=== PATIENT | female | born 1950 | race Caucasian/White ===

== ENCOUNTER 2023-10-01 00:33 | Inpatient (IN) ==
[2023-10-01] MEDS ORDERED: Ondansetron 4 mg VIAL 2 MG/ML 2 ml VIAL IV ONE (08:05)
[2023-10-01] MEDS ORDERED: Morphine 4 MG/ML VIAL (1 ml) IV ONE (08:05)
[2023-10-01 09:00] LABS: ABS Eosinophils 0.1 10^3/uL (0.0-0.5); ABS Lymphocytes 1.4 10^3/uL (1.0-4.8); ABS Monocytes 0.7 10^3/uL (0.0-0.9); ABS Neutrophils 6.1 10^3/uL (1.5-7.6); ABS Nucleated RBC 0.01 10^3/ul; Eosinophil % 1.1 %; Hematocrit 38.1 % (35-45); Hemoglobin 12.8 g/dL (11.5-14.3); Mean Corpuscular Hemoglobin 30.5 pg (27-33); Mean Corpuscular Hgb Conc 33.6 g/dL (31-36); Mean Corpuscular Volume 90.8 fL (80-97); Mean Platelet Volume 8.4 fL (7.5-11.2); Nucleated Red Blood Cells % 0.1 %/100WBC (0.0-0.8); Platelet Count 261 10^3/uL (150-450); Red Blood Count 4.19 10^6/uL (3.63-4.92); Red Cell Distribution Width 13.4 % (12-17); White Blood Count 8.4 10^3/uL (3.8-11.8)
[2023-10-01 09:21] LABS: INR 1.21 (0.83-1.13)
[2023-10-01 09:32] LABS: Albumin 3.7 g/dL (3.2-5.2); Albumin/Globulin Ratio 1.3 (1-3); Calcium 8.8 mg/dL (8.6-10.3); Creatinine, Serum 0.91 mg/dL (0.51-0.95); Globulin 2.9 g/dL (2-4); Potassium 3.8 mmol/L (3.5-5.0); Total Bilirubin 0.5 mg/dL (0.2-1.0); Total Protein 6.6 g/dL (6.4-8.9); eGFR CKD-EPI 66.2 (>60)
[2023-10-01] MEDS ORDERED: Enoxaparin 40 MG/0.4 ML SYR SUBCUT ONE (11:54)
[2023-10-01] MEDS ORDERED: Morphine 2 MG/ML SYRINGE IV PRN (11:55)
[2023-10-01] MEDS ORDERED: Ondansetron 4 mg VIAL 2 MG/ML 2 ml VIAL IV PRN (11:58)
[2023-10-01] MEDS: Morphine 2 MG/ML SYRINGE IV PRN (12:20)
[2023-10-01] MEDS ORDERED: Dextrose 50% Syringe 50 ml 25 GM/50 ML SYRINGE IV PUSH PRN (15:57)
[2023-10-02 06:42] LABS: ABS Eosinophils 0.2 10^3/uL (0.0-0.5); ABS Lymphocytes 1.2 10^3/uL (1.0-4.8); ABS Monocytes 0.8 10^3/uL (0.0-0.9); ABS Neutrophils 3.9 10^3/uL (1.5-7.6); ABS Nucleated RBC 0.01 10^3/ul; Eosinophil % 3.2 %; Hematocrit 39.1 % (35-45); Hemoglobin 12.9 g/dL (11.5-14.3); Lymphocyte % 19.9 %; Mean Corpuscular Hemoglobin 30.8 pg (27-33); Mean Corpuscular Volume 93.3 fL (80-97); Mean Platelet Volume 8.6 fL (7.5-11.2); Nucleated Red Blood Cells % 0.1 %/100WBC (0.0-0.8); Platelet Count 237 10^3/uL (150-450); Red Blood Count 4.19 10^6/uL (3.63-4.92); Red Cell Distribution Width 13.9 % (12-17); White Blood Count 6.2 10^3/uL (3.8-11.8)
[2023-10-02 07:17] LABS: Calcium 8.6 mg/dL (8.6-10.3); Creatinine, Serum 0.85 mg/dL (0.51-0.95); Potassium 4.5 mmol/L (3.5-5.0); eGFR CKD-EPI 71.8 (>60)
[2023-10-02] MEDS: Morphine 2 MG/ML SYRINGE IV PRN (15:10)
[2023-10-02] MEDS ORDERED: Enoxaparin 40 MG/0.4 ML SYR SUBCUT ONE (18:27)
[2023-10-03] MEDS: Morphine 2 MG/ML SYRINGE IV PRN (06:17)
[2023-10-03 06:53] LABS: ABS Basophils 0.1 10^3/uL (0.0-0.1); ABS Eosinophils 0.3 10^3/uL (0.0-0.5); ABS Lymphocytes 1.1 10^3/uL (1.0-4.8); ABS Monocytes 0.8 10^3/uL (0.0-0.9); ABS Neutrophils 4.6 10^3/uL (1.5-7.6); ABS Nucleated RBC 0.01 10^3/ul; Eosinophil % 4.2 %; Hematocrit 35.4 % (35-45); Hemoglobin 11.9 g/dL (11.5-14.3); Lymphocyte % 16.1 %; Mean Corpuscular Hemoglobin 30.5 pg (27-33); Mean Corpuscular Hgb Conc 33.6 g/dL (31-36); Mean Corpuscular Volume 90.8 fL (80-97); Mean Platelet Volume 8.8 fL (7.5-11.2); Nucleated Red Blood Cells % 0.1 %/100WBC (0.0-0.8); Platelet Count 228 10^3/uL (150-450); Red Cell Distribution Width 13.3 % (12-17); White Blood Count 6.7 10^3/uL (3.8-11.8)
[2023-10-03 07:56] LABS: Calcium 8.2 mg/dL (8.6-10.3); Creatinine, Serum 0.83 mg/dL (0.51-0.95); Magnesium 1.9 mg/dL (1.9-2.7); Potassium 3.9 mmol/L (3.5-5.0); eGFR CKD-EPI 73.9 (>60)
[2023-10-03] MEDS ORDERED: Enoxaparin 40 MG/0.4 ML SYR SUBCUT ONE (17:00)
[2023-10-03] MEDS ORDERED: Scopolamine 1 mg/72hr PATCH TRANSDERM ONE (19:51)
[2023-10-03] MEDS ORDERED: Buffered Lidocaine 1% SYRIN 1 ml INTRADERM ONE (19:51)
[2023-10-03] MEDS: Lactated Ringers 1000 ml BAG 1,000 ML IV SCH ×2 (20:58→21:03)
[2023-10-04 05:52] LABS: ABS Basophils 0.1 10^3/uL (0.0-0.1); ABS Eosinophils 0.3 10^3/uL (0.0-0.5); ABS Monocytes 0.7 10^3/uL (0.0-0.9); Eosinophil % 5.4 %; Hematocrit 35.6 % (35-45); Hemoglobin 12.3 g/dL (11.5-14.3); Lymphocyte % 16.6 %; Mean Corpuscular Hemoglobin 31.2 pg (27-33); Mean Corpuscular Hgb Conc 34.5 g/dL (31-36); Mean Corpuscular Volume 90.5 fL (80-97); Mean Platelet Volume 8.5 fL (7.5-11.2); Platelet Count 228 10^3/uL (150-450); Red Blood Count 3.93 10^6/uL (3.63-4.92); Red Cell Distribution Width 13.4 % (12-17); White Blood Count 6.1 10^3/uL (3.8-11.8)
[2023-10-04 06:11] LABS: Calcium 8.1 mg/dL (8.6-10.3); Creatinine, Serum 0.65 mg/dL (0.51-0.95); Potassium 3.8 mmol/L (3.5-5.0); eGFR CKD-EPI 92.3 (>60)
[2023-10-04] MEDS: Lactated Ringers 1000 ml BAG 1,000 ML IV SCH ×2 (08:38→20:35)
[2023-10-04] MEDS ORDERED: Succinylcholine 200 mg VIAL 20 mg/ml 10 ml VIAL (200 mg) ONE (10:05)
[2023-10-04] MEDS ORDERED: Rocuronium 50 mg VIAL 10 mg/ml 5 ml VIAL (50 mg) ONE ×2 (10:05→12:43)
[2023-10-04] MEDS ORDERED: Lidocaine 2% PF 5 ML VIAL ONE (10:05)
[2023-10-04] MEDS ORDERED: Propofol 10 MG/ML 20 ML BTL ONE (10:05)
[2023-10-04] MEDS ORDERED: Midazolam 2 mg/2 ml VIAL 1 mg/ml 2 ml VIAL (2 mg) ONE (10:06)
[2023-10-04] MEDS ORDERED: fentaNYL 250 mcg/5 ml 50 MCG/ML 5 ml VIAL (250 MCG) ONE (10:07)
[2023-10-04] MEDS ORDERED: ceFAZolin *3* GM in NS PREMIX 3 GM/100 ML BAG IV ONE (11:36)
[2023-10-04] MEDS ORDERED: Naloxone 0.4 mg VIAL 0.4 mg/ml 1 ml VIAL IV PRN (13:43)
[2023-10-04] MEDS ORDERED: Metoclopramide 5 MG/ML VIAL (10 mg) IV PRN (13:43)
[2023-10-04] MEDS ORDERED: Bupivacaine 0.5% SDV PF 30ML VIAL ONE (14:00)
[2023-10-04] MEDS ORDERED: Labetalol IV 5 MG/ML 20 ml VIAL ONE (15:01)
[2023-10-04] MEDS ORDERED: fentaNYL 100 mcg/2 ml 50 MCG/ML VIAL ONE (15:01)
[2023-10-04] MEDS ORDERED: Morphine 4 MG/ML VIAL (1 ml) ONE (15:39)
[2023-10-04] MEDS: Morphine 2 MG/ML SYRINGE IV PRN (17:35)
[2023-10-04] MEDS: ceFAZolin 1 GM ADVAN 1 GM in NS 0.9% 50 ML 50 ML IVPB SCH (20:35)
[2023-10-05] MEDS: ceFAZolin 1 GM ADVAN 1 GM in NS 0.9% 50 ML 50 ML IVPB SCH ×2 (03:56→12:17)
[2023-10-05] MEDS: Enoxaparin 40 MG/0.4 ML SYR SUBCUT SCH (08:02)
[2023-10-05 08:44] LABS: ABS Eosinophils 0.2 10^3/uL (0.0-0.5); ABS Lymphocytes 1.1 10^3/uL (1.0-4.8); ABS Monocytes 1.1 10^3/uL (0.0-0.9); ABS Neutrophils 6.7 10^3/uL (1.5-7.6); ABS Nucleated RBC 0.01 10^3/ul; Eosinophil % 2.2 %; Hematocrit 36.1 % (35-45); Lymphocyte % 11.8 %; Mean Corpuscular Hemoglobin 30.5 pg (27-33); Mean Corpuscular Hgb Conc 33.3 g/dL (31-36); Mean Corpuscular Volume 91.6 fL (80-97); Mean Platelet Volume 8.5 fL (7.5-11.2); Nucleated Red Blood Cells % 0.1 %/100WBC (0.0-0.8); Platelet Count 273 10^3/uL (150-450); Red Blood Count 3.94 10^6/uL (3.63-4.92); Red Cell Distribution Width 13.2 % (12-17); White Blood Count 9.2 10^3/uL (3.8-11.8)
[2023-10-05 08:56] LABS: Calcium 8.6 mg/dL (8.6-10.3); Creatinine, Serum 0.8 mg/dL (0.51-0.95); Magnesium 1.9 mg/dL (1.9-2.7); Phosphorus 3.3 mg/dL (2.5-5.0); Potassium 4.1 mmol/L (3.5-5.0); eGFR CKD-EPI 77.3 (>60)
[2023-10-06] MEDS ORDERED: Polyethylene Glycol 3350 17 GM PACKET PO PRN (04:08)
[2023-10-06] MEDS ORDERED: Magnesium Hydroxide LIQ 30 ML UDC PO PRN (04:08)
[2023-10-06] MEDS ORDERED: Senna TAB 8.6 mg TAB PO PRN (04:08)
[2023-10-06 07:08] LABS: Hematocrit 31.5 % (35-45); Hemoglobin 10.7 g/dL (11.5-14.3)
[2023-10-06] MEDS: Enoxaparin 40 MG/0.4 ML SYR SUBCUT SCH (08:53)
[2023-10-06] MEDS ORDERED: Metoprolol Tartrate 5 mg VIAL 5 ml VIAL (1 mg/ml) IV PRN (11:32)
[2023-10-06] MEDS ORDERED: Enoxaparin 80 MG/0.8 ML SYR SUBCUT ONE (11:35)
[2023-10-06 11:55] LABS: Creatinine, Serum 0.75 mg/dL (0.51-0.95); Phosphorus 3.1 mg/dL (2.5-5.0); Potassium 3.9 mmol/L (3.5-5.0); eGFR CKD-EPI 83.5 (>60)
[2023-10-06] MEDS: Polyethylene Glycol 3350 17 GM PACKET PO SCH (12:09)
[2023-10-06 12:23] LABS: TSH Ultra Thyroid Stim Horm 2.88 mcIU/mL (0.34-5.60)
[2023-10-06 12:25] LABS: Free T4 1.22 ng/dL (0.61-1.12)
[2023-10-06] MEDS ORDERED: Sulfur Hexaflouride MICROSPHR 25 MG VIAL ONE (15:31)
[2023-10-06] MEDS ORDERED: Iohexol 350 (CONTRAST) 500 ML MDV IV ONE (19:22)
[2023-10-07 06:18] LABS: Hemoglobin 10.8 g/dL (11.5-14.3); Mean Corpuscular Hemoglobin 30.5 pg (27-33); Mean Corpuscular Hgb Conc 33.7 g/dL (31-36); Mean Corpuscular Volume 90.6 fL (80-97); Mean Platelet Volume 9.1 fL (7.5-11.2); Platelet Count 267 10^3/uL (150-450); Red Blood Count 3.54 10^6/uL (3.63-4.92); Red Cell Distribution Width 13.3 % (12-17); White Blood Count 6.5 10^3/uL (3.8-11.8)
[2023-10-07 06:36] LABS: Calcium 8.4 mg/dL (8.6-10.3); Creatinine, Serum 0.78 mg/dL (0.51-0.95); Phosphorus 2.8 mg/dL (2.5-5.0); Potassium 3.7 mmol/L (3.5-5.0); eGFR CKD-EPI 79.7 (>60)
[2023-10-07 07:13] LABS: Free T4 1.29 ng/dL (0.61-1.12)
[2023-10-07] MEDS: Polyethylene Glycol 3350 17 GM PACKET PO SCH (09:06)
[2023-10-08 06:41] LABS: Hematocrit 33.6 % (35-45); Hemoglobin 11.3 g/dL (11.5-14.3)
[2023-10-08] MEDS ORDERED: Regadenoson 0.4 MG/5 ML SYRINGE ONE (08:07)
[2023-10-08] MEDS ORDERED: Aminophylline 25 MG/ML VIAL ONE (08:07)
[2023-10-08] MEDS: Polyethylene Glycol 3350 17 GM PACKET PO SCH (10:21)
[2023-10-08] MEDS: ceFAZolin 1 GM ADVAN 1 GM in NS 0.9% 50 ML 50 ML IVPB SCH ×2 (15:23→22:25)
[2023-10-09] MEDS: ceFAZolin 1 GM ADVAN 1 GM in NS 0.9% 50 ML 50 ML IVPB SCH ×3 (05:36→22:53)
[2023-10-09 06:57] LABS: Hematocrit 35.3 % (35-45); Hemoglobin 11.8 g/dL (11.5-14.3)
[2023-10-09] MEDS ORDERED: Iohexol 350 (CONTRAST) 100 ML PAK IV ONE ×2 (08:41→09:24)
[2023-10-09] MEDS ORDERED: Lidocaine 1% MPF 5 ML VIAL ONE (08:41)
[2023-10-09] MEDS ORDERED: Heparin 2 UNITS/ML 1000 mls 2,000 ML IV ONE (08:41)
[2023-10-09] MEDS ORDERED: Midazolam 10 mg/10 ml VIAL 1 mg/ml 10 ml VIAL (10 mg) IV SLOW PU ONE (08:45)
[2023-10-09] MEDS ORDERED: fentaNYL 100 mcg/2 ml 50 MCG/ML VIAL IV SLOW PU ONE (08:45)
[2023-10-09] MEDS ORDERED: Heparin 1,000 UNIT/ML 10 ml (10,000 UNITS) CATHLAB/DIALYSIS ONE (08:57)
[2023-10-09] MEDS ORDERED: fentaNYL 100 mcg/2 ml 50 MCG/ML VIAL ONE (08:57)
[2023-10-09] MEDS ORDERED: VERAPAMIL 2.5 MG/ML 2 ML VIAL ** 5 mg/2 ml ONE (08:57)
[2023-10-09] MEDS ORDERED: nitroGLYCERIN DRIP 25,000 MCG/250 ML BTL ONE (08:57)
[2023-10-09] MEDS ORDERED: Midazolam 5 mg/5 ml VIAL 1 mg/ml 5 ml VIAL (5 mg) ONE (08:57)
[2023-10-09] MEDS ORDERED: NS 0.9% 1000 ml BAG 1,000 ML IV SCH (09:45)
[2023-10-09 10:59] LABS: ABS Basophils 0.1 10^3/uL (0.0-0.1); ABS Eosinophils 0.3 10^3/uL (0.0-0.5); ABS Lymphocytes 0.8 10^3/uL (1.0-4.8); ABS Monocytes 0.6 10^3/uL (0.0-0.9); ABS Neutrophils 5.9 10^3/uL (1.5-7.6); ABS Nucleated RBC 0.01 10^3/ul; Eosinophil % 4.1 %; Hematocrit 32.7 % (35-45); Hemoglobin 10.9 g/dL (11.5-14.3); Lymphocyte % 10.9 %; Mean Corpuscular Hemoglobin 30.3 pg (27-33); Mean Corpuscular Hgb Conc 33.4 g/dL (31-36); Mean Corpuscular Volume 90.7 fL (80-97); Mean Platelet Volume 8.3 fL (7.5-11.2); Nucleated Red Blood Cells % 0.2 %/100WBC (0.0-0.8); Platelet Count 347 10^3/uL (150-450); Red Blood Count 3.61 10^6/uL (3.63-4.92); Red Cell Distribution Width 13.3 % (12-17); White Blood Count 7.7 10^3/uL (3.8-11.8)
[2023-10-09] MEDS: Polyethylene Glycol 3350 17 GM PACKET PO SCH (13:21)
[2023-10-09] MEDS ORDERED: Metoprolol Tartrate 5 mg VIAL 5 ml VIAL (1 mg/ml) IV ONE (19:07)
[2023-10-10] MEDS: ceFAZolin 1 GM ADVAN 1 GM in NS 0.9% 50 ML 50 ML IVPB SCH ×3 (05:44→21:43)
[2023-10-10 07:54] LABS: ABS Basophils 0.1 10^3/uL (0.0-0.1); ABS Eosinophils 0.5 10^3/uL (0.0-0.5); ABS Lymphocytes 1.3 10^3/uL (1.0-4.8); ABS Monocytes 0.7 10^3/uL (0.0-0.9); ABS Neutrophils 4.7 10^3/uL (1.5-7.6); ABS Nucleated RBC 0.01 10^3/ul; Eosinophil % 6.3 %; Hematocrit 38.8 % (35-45); Hemoglobin 12.4 g/dL (11.5-14.3); Lymphocyte % 17.9 %; Mean Corpuscular Hemoglobin 30.7 pg (27-33); Mean Corpuscular Hgb Conc 31.9 g/dL (31-36); Mean Platelet Volume 8.7 fL (7.5-11.2); Nucleated Red Blood Cells % 0.1 %/100WBC (0.0-0.8); Platelet Count 326 10^3/uL (150-450); Red Blood Count 4.04 10^6/uL (3.63-4.92); Red Cell Distribution Width 14.3 % (12-17); White Blood Count 7.2 10^3/uL (3.8-11.8)
[2023-10-10] MEDS ORDERED: Potassium Chloride LIQUID 20 MEQ/15 ML LIQUID PO ONE (09:47)
[2023-10-10] MEDS: Polyethylene Glycol 3350 17 GM PACKET PO SCH (11:08)
[2023-10-11] MEDS: ceFAZolin 1 GM ADVAN 1 GM in NS 0.9% 50 ML 50 ML IVPB SCH ×3 (06:37→22:17)
[2023-10-11 06:47] LABS: Calcium 8.3 mg/dL (8.6-10.3); Creatinine, Serum 0.65 mg/dL (0.51-0.95); Potassium 4.1 mmol/L (3.5-5.0); eGFR CKD-EPI 92.3 (>60)
[2023-10-11] MEDS: Polyethylene Glycol 3350 17 GM PACKET PO SCH (09:13)
[2023-10-12] MEDS: ceFAZolin 1 GM ADVAN 1 GM in NS 0.9% 50 ML 50 ML IVPB SCH ×3 (06:45→22:02)
[2023-10-12 08:02] LABS: Albumin 3.1 g/dL (3.2-5.2); Creatinine, Serum 0.67 mg/dL (0.51-0.95); Globulin 3.1 g/dL (2-4); Magnesium 2.1 mg/dL (1.9-2.7); Potassium 3.9 mmol/L (3.5-5.0); Total Bilirubin 0.4 mg/dL (0.2-1.0); Total Protein 6.2 g/dL (6.4-8.9); eGFR CKD-EPI 91.7 (>60)
[2023-10-12] MEDS: Polyethylene Glycol 3350 17 GM PACKET PO SCH (10:49)
[2023-10-13] MEDS: ceFAZolin 1 GM ADVAN 1 GM in NS 0.9% 50 ML 50 ML IVPB SCH ×3 (05:36→22:32)
[2023-10-13] MEDS: Polyethylene Glycol 3350 17 GM PACKET PO SCH (12:18)
[2023-10-14] MEDS: ceFAZolin 1 GM ADVAN 1 GM in NS 0.9% 50 ML 50 ML IVPB SCH (05:39)
[2023-10-14 06:19] VITALS: BP 143/61
[2023-10-14] MEDS: Polyethylene Glycol 3350 17 GM PACKET PO SCH (09:39)
== END 2023-10-14 10:40 | DRG 492 ==
LOC: ED 00:33 → EDHOLD 00:33 → SSU 08:53 → EDHOLD 09:03 → SSU 09:41 → SUATTDRO 10-02 09:00
PROVIDERS: ADMIT Student in an Organized Health Care Education/Training Program; ATTEND Internal Medicine

== ENCOUNTER 2024-04-06 09:00 | Inpatient (IN) ==
[2024-04-06 09:52] LABS: ABS Basophils 0.1 10^3/uL (0.0-0.1); ABS Eosinophils 0.3 10^3/uL (0.0-0.5); ABS Lymphocytes 1.3 10^3/uL (1.0-4.8); ABS Monocytes 0.9 10^3/uL (0.0-0.9); ABS Neutrophils 6.9 10^3/uL (1.5-7.6); ABS Nucleated RBC 0.01 10^3/ul; Eosinophil % 2.9 %; Hematocrit 23.2 % (35-45); Hemoglobin 7.8 g/dL (11.5-14.3); Lymphocyte % 13.8 %; Mean Corpuscular Hemoglobin 29.9 pg (27-33); Mean Corpuscular Hgb Conc 33.5 g/dL (31-36); Mean Corpuscular Volume 89.2 fL (80-97); Mean Platelet Volume 7.7 fL (7.5-11.2); Nucleated Red Blood Cells % 0.1 %/100WBC (0.0-0.8); Platelet Count 415 10^3/uL (150-450); Red Cell Distribution Width 16.5 % (12-17); White Blood Count 9.4 10^3/uL (3.8-11.8)
[2024-04-06 10:09] LABS: INR 1.24 (0.83-1.13)
[2024-04-06 10:45] LABS: ALT 10 U/L (7-52); AST 13 U/L (13-39); Albumin 3.3 g/dL (3.2-5.2); Albumin/Globulin Ratio 1.4 (1-3); Alkaline Phosphatase 48 U/L (35-149); Anion Gap 9 mmol/L (2-16); Blood Urea Nitrogen 26 mg/dL (6-24); CO2 Carbon Dioxide 25 mmol/L (22-32); Calcium 8.2 mg/dL (8.6-10.3); Chloride 105 mmol/L (101-111); Creatinine, Serum 0.91 mg/dL (0.51-0.95); Globulin 2.3 g/dL (2-4); Glucose 48 mg/dL (70-100); Potassium 4.2 mmol/L (3.5-5.0); Sodium 139 mmol/L (135-145); Total Bilirubin 0.3 mg/dL (0.2-1.0); Total Protein 5.6 g/dL (6.4-8.9); eGFR CKD-EPI 66.2 (>60)
[2024-04-06 10:53] LABS: TSH Ultra Thyroid Stim Horm 5.94 mcIU/mL (0.34-5.60)
[2024-04-06] MEDS: Dextrose 50% Syringe 50 ml 25 GM/50 ML SYRINGE IV PUSH ONE (10:55)
[2024-04-06 10:57] LABS: Free T4 1.09 ng/dL (0.61-1.12)
[2024-04-06] MEDS: Morphine 4 MG/ML VIAL (1 ml) IV ONE (16:23)
[2024-04-06] MEDS ORDERED: Dextrose 50% Syringe 50 ml 25 GM/50 ML SYRINGE IV PUSH PRN (17:41)
[2024-04-07 03:44] LABS: % Iron Saturation 4 % (15-55); .Transferrin 329 mg/dL (203-362); Iron < 20 ug/dL (50-212); Total Iron Binding Capacity 461 mcg/dL (250-450); Unsaturated Iron Binding 441 ug/dL
[2024-04-07 04:04] LABS: Ferritin 13.3 ng/mL (11-307)
[2024-04-07 05:39] LABS: ABS Basophils 0.1 10^3/uL (0.0-0.1); ABS Eosinophils 0.3 10^3/uL (0.0-0.5); ABS Lymphocytes 1.3 10^3/uL (1.0-4.8); ABS Monocytes 0.8 10^3/uL (0.0-0.9); ABS Neutrophils 3.8 10^3/uL (1.5-7.6); Eosinophil % 5.2 %; Hematocrit 19.7 % (35-45); Hemoglobin 6.6 g/dL (11.5-14.3); Lymphocyte % 21.3 %; Mean Corpuscular Hemoglobin 30.1 pg (27-33); Mean Corpuscular Hgb Conc 33.7 g/dL (31-36); Mean Corpuscular Volume 89.2 fL (80-97); Mean Platelet Volume 7.8 fL (7.5-11.2); Platelet Count 334 10^3/uL (150-450); Red Blood Count 2.21 10^6/uL (3.63-4.92); Red Cell Distribution Width 16.2 % (12-17); White Blood Count 6.3 10^3/uL (3.8-11.8)
[2024-04-07 06:05] LABS: Albumin 2.9 g/dL (3.2-5.2); Albumin/Globulin Ratio 1.5 (1-3); Calcium 7.8 mg/dL (8.6-10.3); Creatinine, Serum 0.81 mg/dL (0.51-0.95); Potassium 4.4 mmol/L (3.5-5.0); Total Bilirubin 0.3 mg/dL (0.2-1.0); Total Protein 4.9 g/dL (6.4-8.9); eGFR CKD-EPI 76.1 (>60)
[2024-04-07] MEDS: Lactated Ringers 1000 ml BAG 500 ML IV ONE (06:22)
[2024-04-07] MEDS ORDERED: Polyethylene Glycol 3350 17 GM PACKET PO PRN (10:46)
[2024-04-07] MEDS ORDERED: Senna TAB 8.6 mg TAB PO PRN (10:46)
[2024-04-07 13:14] LABS: Hematocrit 27.1 % (35-45)
[2024-04-08 05:05] LABS: ABS Basophils 0.1 10^3/uL (0.0-0.1); ABS Eosinophils 0.5 10^3/uL (0.0-0.5); ABS Lymphocytes 1.3 10^3/uL (1.0-4.8); ABS Monocytes 0.7 10^3/uL (0.0-0.9); ABS Neutrophils 3.6 10^3/uL (1.5-7.6); ABS Nucleated RBC 0.01 10^3/ul; Eosinophil % 8.4 %; Hematocrit 22.3 % (35-45); Hemoglobin 7.6 g/dL (11.5-14.3); Lymphocyte % 21.4 %; Mean Corpuscular Hemoglobin 30.7 pg (27-33); Mean Corpuscular Hgb Conc 34.2 g/dL (31-36); Mean Corpuscular Volume 89.7 fL (80-97); Mean Platelet Volume 7.5 fL (7.5-11.2); Nucleated Red Blood Cells % 0.1 %/100WBC (0.0-0.8); Platelet Count 331 10^3/uL (150-450); Red Blood Count 2.49 10^6/uL (3.63-4.92); Red Cell Distribution Width 16.2 % (12-17); White Blood Count 6.2 10^3/uL (3.8-11.8)
[2024-04-08 05:19] LABS: Calcium 8.2 mg/dL (8.6-10.3); Creatinine, Serum 0.76 mg/dL (0.51-0.95); Potassium 4.2 mmol/L (3.5-5.0); eGFR CKD-EPI 82.2 (>60)
[2024-04-08 12:08] LABS: Hematocrit 25.6 % (35-45); Hemoglobin 8.2 g/dL (11.5-14.3)
[2024-04-09 06:51] LABS: ABS Basophils 0.1 10^3/uL (0.0-0.1); ABS Eosinophils 0.4 10^3/uL (0.0-0.5); ABS Lymphocytes 1.1 10^3/uL (1.0-4.8); ABS Monocytes 0.7 10^3/uL (0.0-0.9); ABS Neutrophils 6.2 10^3/uL (1.5-7.6); Eosinophil % 4.8 %; Hematocrit 23.4 % (35-45); Hemoglobin 7.7 g/dL (11.5-14.3); Lymphocyte % 12.9 %; Mean Corpuscular Hemoglobin 29.6 pg (27-33); Mean Corpuscular Volume 89.7 fL (80-97); Mean Platelet Volume 7.7 fL (7.5-11.2); Platelet Count 354 10^3/uL (150-450); Red Blood Count 2.61 10^6/uL (3.63-4.92); Red Cell Distribution Width 15.7 % (12-17); White Blood Count 8.4 10^3/uL (3.8-11.8)
[2024-04-10 06:32] LABS: ABS Basophils 0.1 10^3/uL (0.0-0.1); ABS Eosinophils 0.4 10^3/uL (0.0-0.5); ABS Monocytes 0.7 10^3/uL (0.0-0.9); ABS Neutrophils 4.8 10^3/uL (1.5-7.6); Eosinophil % 5.4 %; Hematocrit 22.2 % (35-45); Hemoglobin 7.4 g/dL (11.5-14.3); Lymphocyte % 14.3 %; Mean Corpuscular Hemoglobin 29.8 pg (27-33); Mean Corpuscular Hgb Conc 33.3 g/dL (31-36); Mean Corpuscular Volume 89.5 fL (80-97); Mean Platelet Volume 7.7 fL (7.5-11.2); Platelet Count 348 10^3/uL (150-450); Red Blood Count 2.48 10^6/uL (3.63-4.92); Red Cell Distribution Width 15.6 % (12-17); White Blood Count 6.9 10^3/uL (3.8-11.8)
[2024-04-11 05:32] LABS: Hematocrit 23.2 % (35-45); Hemoglobin 7.6 g/dL (11.5-14.3); Mean Corpuscular Hemoglobin 29.3 pg (27-33); Mean Corpuscular Hgb Conc 32.5 g/dL (31-36); Mean Corpuscular Volume 89.9 fL (80-97); Mean Platelet Volume 7.6 fL (7.5-11.2); Platelet Count 366 10^3/uL (150-450); Red Blood Count 2.59 10^6/uL (3.63-4.92); Red Cell Distribution Width 15.6 % (12-17); White Blood Count 6.2 10^3/uL (3.8-11.8)
[2024-04-12 10:04] VITALS: BP 115/56
== END 2024-04-12 11:20 | DRG 812 ==
LOC: EDHOLD 09:00 → ED 09:00 → SUATTDRO 17:27 → MEDTELE 20:06
PROVIDERS: ADMIT Internal Medicine; ATTEND Hospitalist